=== PATIENT | female | born 1985 | race Caucasian/White ===

== ENCOUNTER 2021-09-27 14:37 | Emergency (ER) | payer OTHER ==
[2021-09-27 16:37] LABS: BASOPHIL 0.3 % (0-2); EOSINOPHIL 1.1 % (0-5); HCT 35.8 % (37.0-47.0); HGB 12.3 g/dl (12.5-16.0); LYMPHOCYTE 30.3 % (15-48); MCH 30.3 pg (25.0-31.0); MCHC 34.4 g/dL (32.0-36.0); MCV 88.2 fL (78.0-100.0); MONOCYTE 5.6 % (0-12); MPV 11.3 fL (6.0-9.5); NRBC 0; PLT 193 K/uL (150-400); RBC 4.06 M/uL (4.20-5.40); WBC 10.4 K/uL (4.0-10.5)
[2021-09-27 17:10] LABS: D-DIMER 0.74 ug/mLFEU (0.00-0.41); INR 0.96 (0.9-1.2); PROTHROMBIN TIME 12.5 SECONDS (11.9-13.9)
[2021-09-27 17:22] LABS: ALBUMIN 2.6 g/dL (3.4-5.0); BILIRUBIN - TOTAL 0.5 mg/dL (0.2-1.0); CREATININE 0.61 mg/dL (0.51-0.95); GLOBULIN (CALCULATION) 3.7 g/dL; TOTAL PROTEIN 6.3 g/dL (6.4-8.2)
== END 2021-09-27 18:21 | disposition home or self-care (01) ==
LOC: FER 14:37
PROVIDERS: Emergency Medicine
DX: O12.02 Gestational edema, second trimester (principal); O9A.212 Injury, poisoning and certain other consequences of external causes complicating pregnancy, second trimester; O99.332 Smoking (tobacco) complicating pregnancy, second trimester; F17.290 Nicotine dependence, other tobacco product, uncomplicated; T66.XXXA Radiation sickness, unspecified, initial encounter; Z3A.24 24 weeks gestation of pregnancy; X58.XXXA Exposure to other specified factors, initial encounter
CPT/HCPCS: 36415; 80053; 83880; 85025; 85379; 85610; 85730; 93970